=== PATIENT | male | born 1985 | race Caucasian/White ===

== ENCOUNTER 2020-10-09 20:55 | Emergency (ER) | payer BC ==
[~2020-10-09] VITALS: Ht 180.3 cm; Wt 84.1 kg
[~2020-10-09 20:55] MED LIST: AMOXICILLIN 8751 TAB PO; LORTAB 5/500 501 TAB PO; NO HOME MEDICATIONS; ULTRAM 50MG TAB50 MG PO; ZOFRAN 4MG T4 MG/TAB PO
[2020-10-09 21:01] VITALS: BP 139/95; TEMP 98.8
[2020-10-09 22:02] VITALS: PULSE 98
== END 2020-10-09 22:04 | disposition home or self-care (01) ==
LOC: COL.ER 20:55
DX: S91.311A Laceration without foreign body, right foot, initial encounter (principal); F17.200 Nicotine dependence, unspecified, uncomplicated; Z23 Encounter for immunization; W26.0XXA Contact with knife, initial encounter

== ENCOUNTER 2021-06-12 13:33 | Emergency (ER) | payer BC | END 2021-06-12 14:10 | disposition left against medical advice (07) | LOC: COL.ER 13:33 | DX: R69 Illness, unspecified (principal) ==